=== PATIENT | female | born 1930 | race African-American/Black ===

== ENCOUNTER 2018-08-23 18:09 | Emergency (ER) | payer OTHER ==
[~2018-08-23] VITALS: Ht 172.7 cm; Wt 100.0 kg
[~2018-08-23 18:09] MED LIST: ASPI-986 PO; CALC-1232 GT; HYDR12.529 PO; LISI-186 PO; MULT-1146 PO; SPIR25TA6 PO
[2018-08-23] MEDS ORDERED: ASPIRIN 81MG TABLET PO ONE (18:45)
[2018-08-23] MEDS ORDERED: NITROGLYCERIN 0.4MG TABLET SL SL PRN (18:45)
[2018-08-23 20:24] LABS: BASOPHILS % 0.8 % (0.0-2.0); EOSINOPHILS % 1.2 % (0.0-5.0); HEMATOCRIT. 38.2 % (36.0-48.0); HEMOGLOBIN. 13.3 g/dL (12.0-16.0); LYMPHOCYTES % 21.2 % (20.0-50.0); MEAN PLATELET VOLUME 6.1 fl (7.4-10.4); MONOCYTES % 6.5 % (2.0-8.0); NEUTROPHILS % 70.3 % (40.0-76.0); PLATELET 334 x1000/uL (130-400)
[2018-08-23 20:27] LABS: CHLORIDE 101 mEq/L (98-107)
[2018-08-23 20:28] LABS: INR 2.2; PROTHROMBIN TIME 22.1 sec (9.1-11.1)
[2018-08-23] MEDS ORDERED: CEFTRIAXONE 1 G PREMIX 50 ML IV ONE (21:15)
[2018-08-23] MEDS ORDERED: AZITHROMYCIN 500 MG in DEXT 5% WATER 250 ML IV ONE (21:15)
[2018-08-23 22:30] VITALS: BP 137/69
== END 2018-08-23 23:08 | disposition short-term general hospital (02) ==
LOC: ER 18:53 → CANBEDREQ 08-24 00:57
DX: R07.89 Other chest pain (principal); I20.0 Unstable angina; I10 Essential (primary) hypertension; R94.31 Abnormal electrocardiogram [ECG] [EKG]; J98.11 Atelectasis; E07.89 Other specified disorders of thyroid; Z79.82 Long term (current) use of aspirin; Z85.9 Personal history of malignant neoplasm, unspecified
CPT/HCPCS: 36415; 71045; 80053; 83880; 84484; 85025; 85610; 87040; 93005; 93970; 96365; 99285; J0456; J0696; J7060

== ENCOUNTER 2019-04-13 04:19 | Emergency (ER) | payer OTHER ==
[~2019-04-13] VITALS: Ht 167.6 cm; Wt 82.0 kg
[2019-04-13 05:53] LABS: BASOPHILS % 0.8 % (0.0-2.0); EOSINOPHILS % 1.6 % (0.0-5.0); HEMATOCRIT. 37.8 % (36.0-48.0); HEMOGLOBIN. 13.3 g/dL (12.0-16.0); LYMPHOCYTES % 22.7 % (20.0-50.0); MEAN CORPUSCULAR HEMOGLOBIN 30.9 pg (28.0-32.0); MEAN CORPUSCULAR VOLUME 87.8 fL (81.0-99.0); MEAN PLATELET VOLUME 6.3 fl (7.4-10.4); MONOCYTES % 8.8 % (2.0-8.0); NEUTROPHILS % 66.1 % (40.0-76.0); PLATELET 329 x1000/uL (130-400); RED CELL DISTRIBUTION WIDTH 14.3 % (11.6-14.6)
[2019-04-13 06:04] LABS: CHLORIDE 103 mEq/L (98-107)
[2019-04-13 06:08] LABS: INR 1.8; PROTHROMBIN TIME 17.9 sec (9.6-11.0)
[2019-04-13 09:05] VITALS: BP 137/64
== END 2019-04-13 09:05 | disposition home or self-care (01) ==
LOC: ER 04:19
DX: R00.2 Palpitations (principal); I48.91 Unspecified atrial fibrillation; I10 Essential (primary) hypertension; Z85.9 Personal history of malignant neoplasm, unspecified; Z79.01 Long term (current) use of anticoagulants
CPT/HCPCS: 36415; 71045; 83880; 84484; 93005; 99284